=== PATIENT | female | born 2000 | race African-American/Black ===

== ENCOUNTER 2020-07-27 21:57 | Emergency (ER) | payer OTHER ==
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
[2020-07-28 01:26] VITALS: BP 120/75
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
== END 2020-07-28 01:24 | disposition home or self-care (01) ==
LOC: ER 21:57
DX: S29.019A Strain of muscle and tendon of unspecified wall of thorax, initial encounter (principal); S39.012A Strain of muscle, fascia and tendon of lower back, initial encounter; V40.5XXA Car driver injured in collision with pedestrian or animal in traffic accident, initial encounter
CPT/HCPCS: 72070; 72110; 99283